=== PATIENT | female | born 1950 | race Caucasian/White ===

== ENCOUNTER 2020-09-18 07:18 | Day surgery (SDC) | payer OTHER ==
[~2020-09-18] VITALS: Ht 162.6 cm; Wt 59.0 kg
[~2020-09-18 07:18] MED LIST: FLONASE SENSIM5.9 ML NS; LIPITOR40 MG PO; NEXIUM40 MG PO; OMEPRAZOLE20 MG PO; VENTOLIN HFA18 GM INH; [UNRECOGNIZED DRUG - OTHER] IM
--- NOTE | 2020-09-18 08:38 | NUR ---
09/18/20 0838 Ana Perera 0831- PT ARRIVES TO PACU AWAKE. PT REPORTS NO PAIN OR NAUSEA. PT DROWSY AND FALLS TO SLEEP WHEN NOT BEING TALKED TO. RESP EVEN AND UNLABORED. OXYGEN SAT HIGH 90'S TO 100% ON 3L VIA NC.
--- NOTE | 2020-09-23 09:43 | PATH ---
[facility] [address] [place], [place] [address] Signed SPECIMEN(S): A DUODENAL BIOPSY SPECIMEN(S): B ANTRUM/ANTRAL BIOPSY SPECIMEN(S): C DISTAL ESOPHAGEAL BIOPSY SPECIMEN(S): D MID ESOPHAGEAL BIOPSY SPECIMEN SOURCE: A. DUODENAL BIOPSY B. ANTRUM/ANTRAL BIOPSY C. DISTAL ESOPHAGEAL BIOPSY D. MID ESOPHAGEAL BIOPSY CLINICAL HISTORY: GERD, esophagitis. Postop: Hiatal hernia, mild gastritis, normal esophagus. MICROSCOPIC DESCRIPTION: Histologic sections of all submitted blocks are examined by light microscopy. These findings, together with the gross examination, support the pathologic diagnosis. FINAL PATHOLOGIC DIAGNOSIS: A. Duodenum, biopsy: - No significant histopathology. B. Stomach, antrum, biopsy: - Chemical gastropathy. C. Distal esophagus, biopsy: - Portions of unremarkable gastric mucosa. - Portions of unremarkable squamous mucosa. - No evidence of Odonnell's esophagus. D. Mid esophagus, biopsy: - Portions of unremarkable squamous mucosa. COMMENT: Regarding specimen A, the sections from the duodenal biopsy show portions of duodenal mucosa with long finger-like villi. There is no villous atrophy, crypt hyperplasia or intraepithelial lymphocytosis, making a diagnosis of celiac disease unlikely. There is no evidence of peptic duodenitis, microorganisms, abnormal infiltrates or neoplasia. Regarding specimen B, these sections reveal features of mild chemical gastropathy. The gastric pits appear slightly irregular and there is mild mucosal congestion. There is no evidence of acute or chronic inflammation. Chemical gastropathies are most commonly seen in PATIENT NAME: MACKENZIE KAHN PATHOLOGY DATE OF : 54 REPORT #: [id number] PHYSICIAN: ANDREAS PETERSON PCP: PARAG MONSALVE MD REPORT IS CONFIDENTIAL AND NOT TO BE RELEASED WITHOUT AUTHORIZATION [facility] [address] [place], [place] [address] Signed individuals with alkaline reflux, exposure to drugs as well as other chemicals. Regarding specimen C, the sections show fragments of unremarkable gastric and squamous mucosa. There is no evidence of acute or chronic inflammation. The specialized columnar epithelium of Odonnell's esophagus is not identified. Regarding specimen D, the biopsy shows normal appearing squamous epithelium. There is no evidence of acute or chronic inflammation. TWK:emh:C2NR GROSS DESCRIPTION: Four specimens are received in four containers, labeled "Mackenzie Kahn." A. The specimen, labeled "Mackenzie Kahn, #1," and designated on the requisition "duodenal biopsy," is received in formalin and consists of two moody soft tissue fragment(s) that measure 0.2 and 0.2 cm in greatest dimension. The specimen is entirely submitted in cassette (A1). B. The specimen, labeled "Mackenzie Kahn, #2," and designated on the requisition "antrum/pylorus biopsy," is received in formalin and consists of two moody soft tissue fragment(s) that measure 0.2 and 0.2 cm in greatest dimension. The specimen is entirely submitted in cassette (B1). C. The specimen, labeled "Mackenzie Kahn, #3," and designated on the requisition "distal esophagus biopsy," is received in formalin and consists of four white-moody soft tissue fragment(s) that measure 0.2-0.4 cm in greatest dimension. The specimen is entirely submitted in cassette (C1). D. The specimen, labeled "Mackenzie Kahn, #4," and designated on the requisition "mid esophagus biopsy," is received in formalin and consists of two white-moody soft tissue fragment(s) that measure 0.4 and 0.6 cm in greatest dimension. The specimen is entirely submitted in cassette (D1). FB (under the direct supervision of a pathologist) The Gross Description was prepared using a voice recognition system. The report was reviewed for accuracy; however, sound-alike word errors, addition and/or deletions may occur. If there is any question about this report, please contact Client Services. PERFORMING LABORATORY: The technical component was performed by [facility], [address] [place] [id number] (Plant Safety Leader: Debi Godinez MD; CLIA# [id number]). Professional interpretation was performed by [facility] [address] [place] [address] PATIENT NAME: MACKENZIE KAHN PATHOLOGY DATE OF : 54 REPORT #: [id number] PHYSICIAN: ANDREAS PETERSON PCP: PARAG MONSALVE MD REPORT IS CONFIDENTIAL AND NOT TO BE RELEASED WITHOUT AUTHORIZATION [facility] [address] [place] [id number] Signed [facility] [address] (Plant Safety Leader: Debi Godinez MD; CLIA# [id number]). Diagnostician: Catarino Jones MD Pathologist Electronically Signed 09/23/2020 Copies: ~ PATIENT NAME: FEMIMACKENZIE MAY PATHOLOGY DATE OF : 54 REPORT #: [id number] PHYSICIAN: ANDREAS PETERSON PCP: PARAG MONSALVE MD REPORT IS CONFIDENTIAL AND NOT TO BE RELEASED WITHOUT AUTHORIZATION
--- NOTE | 2020-09-23 13:31 | OR ---
[facility] [address] [place], [place] [address] Signed DATE OF OPERATION: 09/18/2020 SURGEON: Darcy Smith MD PREOPERATIVE DIAGNOSES: 1. Sensation of "thickness" in throat. 2. Longstanding reflux disease, possible history of Odonnell's esophagus. POSTOPERATIVE DIAGNOSES: 1. No evidence of Odonnell's esophagitis; small hiatal hernia. 2. Mild gastritis without ulceration. 3. Normal-appearing vocal cords, but thickening of soft tissue arytenoid folds. PROCEDURE: Esophagogastroduodenoscopy with biopsy. ANESTHESIA: Intravenous sedation, fentanyl 100 mcg and Versed 3 mg. INDICATION: This 70-year-old white woman is a patient of Dr. Beard and was referred by Dr. Padilla following nasopharyngoscopy, which showed suspicion of possible reflux disease. The patient has seen Dr. Rigo Bowers in [place] since 2018 having undergone upper endoscopy and repeat upper endoscopy in 2019. It is unclear, but she may have had Odonnell's esophagus diagnosed in the past. Pharyngoscopy by Dr. Padilla was said to be normal. She has had some mild cervical dysphagia and a feeling of "a low-grade thing" in her throat where she felt thickening and aggregation of secretions and a sensation of fullness. She has had no hematemesis. She has had no weight loss and has no family history of esophageal cancer. She takes Nexium on a daily basis. She has no distal dysphagia. She is admitted at this time to undergo upper endoscopy upon referral from Dr. Padilla to better characterize her problem. FINDINGS: The vocal cords proper appeared normal but the arytenoid processes and soft tissue seemed somewhat congested and full. Esophagus itself was normal without signs of Odonnell's esophagus and a small hiatal hernia was noted. The stomach had minimal inflammation diffusely, but no sign of ulceration. The pylorus was normal as was the duodenum. CLOtest was negative 20 minutes post procedure. Electronically Signed By: DARCY SMITH MD 09/23/20 1331 PATIENT NAME: MACKENZIE KAHN OPERATIVE REPORT DATE OF : 54 REPORT #: [id number] PHYSICIAN: DARCY SMITH MD PCP: PARAG BEARD MD REPORT IS CONFIDENTIAL AND NOT TO BE RELEASED WITHOUT AUTHORIZATION [facility] [address] [place], [place] [address] Signed DESCRIPTION OF PROCEDURE: The patient was brought to the endoscopy suite and given topical lidocaine hypopharyngeal anesthesia and placed in lateral decubitus position and given intravenous sedation to the point of slurred speech and nystagmus with full cardiopulmonary monitoring. A bite block was placed. An Olympus video upper endoscope was passed in the hypopharynx. Inspection of the hypopharynx showed no specific mass. The arytenoid folds were closed much of the time and only episodically opening to allow for visualization of the vocal cords proper. Once visualized, they appeared entirely normal, but it did appear to be edema of the arytenoid folds. The scope was advanced to the esophagus without problem. The esophagus throughout its length was normal including no evidence of Odonnell's epithelium. The scope was passed to the stomach, which was insufflated with air. Rugal folds were normal. There was some mild antral gastritis, but no sign of ulceration or erosion. Pylorus was normal and nondeformed. The scope was passed through into the duodenum, which was normal. Biopsies were obtained of the duodenum to assess for celiac disease. The scope was withdrawn carefully through the bulb and channel, which was normal. Scope was withdrawn to the antrum allowing for biopsy for both JUAN and pathologic testing. Retroflexed view was undertaken showing a small hiatal hernia. The scope was withdrawn to the distal esophagus, although there was no Z-line, only a circumferential straight line. There was no evidence of Odonnell's epithelium. No sign of active inflammation, no stricture, neoplasm, or varices. Biopsies were obtained. The scope was withdrawn in the midesophagus and biopsied as well. Careful withdrawal showed no other abnormalities. Reinspection of the vocal cord area undertaken, showed no sign of abnormality in the true vocal cords. The scope was removed. The patient was taken to the recovery room in good condition. CONCLUDING DIAGNOSIS: 1. Small hiatal hernia without esophagitis and certainly no evidence of Odonnell's epithelium. 2. Edematous changes of arytenoid folds, nonspecific. PLAN: She will return to the ongoing care of Dr. Beard and Dr. Padilla. Would have her continue with the Nexium as is. MD CARLOS Carbajal/MODL Electronically Signed By: DARCY SMITH MD 09/23/20 1331 PATIENT NAME: MACKENZIE KAHN OPERATIVE REPORT DATE OF : 54 REPORT #: [id number] PHYSICIAN: DARCY SMITH MD PCP: PARAG BEARD MD REPORT IS CONFIDENTIAL AND NOT TO BE RELEASED WITHOUT AUTHORIZATION [place] [id number] Signed /[id number] cc: MD Parag Villafana MD Copies: KARAN PADILLA MD, JONATHAN MD ~ Electronically Signed By: DARCY SMITH MD 09/23/20 1331 PATIENT NAME: MACKENZIE KAHN GIBRAN OPERATIVE REPORT DATE OF : 54 REPORT #: [id number] PHYSICIAN: DARCY SMITH MD PCP: PARAG BEARD MD REPORT IS CONFIDENTIAL AND NOT TO BE RELEASED WITHOUT AUTHORIZATION
== END 2020-09-18 09:10 | disposition home or self-care (01) ==
LOC: DS 07:18 → OPS 07:18 → DS 08:00 → OPS 09:10
PROVIDERS: ATTEND Surgery
PROC: 0DB78ZX Excision of Stomach, Pylorus, Via Natural or Artificial Opening Endoscopic, Diagnostic (ICD-10-PCS; 2020-09-18)
PROC: 0DB28ZX Excision of Middle Esophagus, Via Natural or Artificial Opening Endoscopic, Diagnostic (ICD-10-PCS; 2020-09-18)
PROC: 0DB38ZX Excision of Lower Esophagus, Via Natural or Artificial Opening Endoscopic, Diagnostic (ICD-10-PCS; 2020-09-18)
PROC: 0DB98ZX Excision of Duodenum, Via Natural or Artificial Opening Endoscopic, Diagnostic (ICD-10-PCS; principal; 2020-09-18 08:00)
DX: J38.3 Other diseases of vocal cords (principal); K31.9 Disease of stomach and duodenum, unspecified; K44.9 Diaphragmatic hernia without obstruction or gangrene; K29.70 Gastritis, unspecified, without bleeding; R63.4 Abnormal weight loss
CPT/HCPCS: G0500; J1100; J2250; J2405; J3010; J7121

== ENCOUNTER 2020-12-26 11:58 | Emergency (ER) | payer OTHER ==
[~2020-12-26] VITALS: Ht 162.6 cm; Wt 59.0 kg
[2020-12-26] MEDS ORDERED: PERCOCET 5-3251 EACH PO (13:08)
[2020-12-30] MEDS ORDERED: LO-DOSE ASPIRIN81 M1 (15:50)
[2020-12-30] MEDS ORDERED: CALCIUM + VITA1 EACH (15:51)
== END 2020-12-26 13:45 | disposition home or self-care (01) ==
LOC: ED 11:58
DX: S82.232A Displaced oblique fracture of shaft of left tibia, initial encounter for closed fracture (principal); W01.0XXA Fall on same level from slipping, tripping and stumbling without subsequent striking against object, initial encounter
CPT/HCPCS: 29505; 73590; 99283-25; J1170; J2405

== ENCOUNTER 2021-01-04 06:35 | Day surgery (SDC) | payer OTHER ==
[~2021-01-04] VITALS: Ht 160 cm; Wt 59.1 kg
[~2021-01-04 06:35] MED LIST changes: +CALCIUM + VITA1 EACH; +LO-DOSE ASPIRIN81 M1; +PERCOCET 5-3251 EACH PO
[2021-01-04] MEDS ORDERED: OXYCODONE HCL5 MG PO (07:26)
--- NOTE | 2021-01-04 11:06 | NUR ---
01/04/21 1106 Kenia Moon 1058 PT TO PACU SLEEPING ORAL AIRWAY IN PLACE O2 AT 6L VIA MASK.
[2021-01-04] MEDS ORDERED: ASPIRIN325 MG PO (11:10)
[2021-01-04] MEDS ORDERED: SENNA LAX8.6 MG PO (11:10)
--- NOTE | 2021-01-04 11:58 | NUR ---
PT ARRIVES TO DS RM 4 FROM PACU AWAKE. PT DENIES ANY PAIN IN LLE AND STATES "SOME NAUSEA" WHEN ASKED. PT PROVIDED ALCOHOL SWAB TO INHALE FOR N/V. PT ABLE TO VOID QS IN BEDPAN. SCD IN PLACE ON RLE, PUMPING. PT PROVIDED ICED WATER, CALL LIGHT WITHIN REACH.
--- NOTE | 2021-01-04 13:08 | NUR ---
PT RESTING IN BED AWAKE, DENIES ANY PAIN IN LLE. PT STATES NAUSEA HAS DISSIPATED AND PROVIDED CRACKERS. PT SPOUSE IN RM AT THIS TIME, EDUCATION PROVIDED TO BOTH PT AND SPOUSE. DC CRITERIA EXPLAINED AT THIS TIME, ENCOURAGED TO USE CALL LIGHT WITH ANY NEEDS.
--- NOTE | 2021-01-04 13:09 | OR ---
[facility] [address] [place], [place] [address] Signed DATE OF OPERATION: 01/04/2021 SURGEON: Pati Moon MD PREOPERATIVE DIAGNOSIS: Left distal 3rd tibia fracture. POSTOPERATIVE DIAGNOSIS: Left distal 3rd tibia fracture. PROCEDURE PERFORMED: Closed reduction, intramedullary rodding, left tibia. ELEPHANT TAMER: Neli Valente PA-C. Neli was present and critical for all portions of procedure. ANESTHESIA: General. IMPLANTS: Synthes IM kiera, 9 x 330 with 3 interlocking screws. BLOOD LOSS: 100 mL. BRIEF HISTORY: Mackenzie is a 70-year-old female who suffered a ground level fall fracturing her tibia and her fibula proximally. Risks and benefits of operative treatment were discussed with her and she elected to proceed. DESCRIPTION OF PROCEDURE: Once consent was obtained, she was taken to the operating room. After adequate anesthesia, she was placed on operating room table, all downside pressure points were well padded. The right leg was prepped and draped in a standard sterile fashion. The fracture was fairly easily reduced under image intensifier guidance. We then approached proximally through a 1.5 inch incision along the medial aspect of the patellar tendon. This was carried through skin and subcutaneous tissue. The curved awl was then used into the proximal tibia and this was followed by the ball-tipped guide kiera, which was advanced from the proximal tibia down to the fracture. The fracture was held reduced Electronically Signed By: PATI MOON MD 01/04/21 1309 PATIENT NAME: MACKENZIE KAHN OPERATIVE REPORT DATE OF : 54 REPORT #: [id number] PHYSICIAN: PATI MOON MD PCP: PARAG MNOSALVE MD REPORT IS CONFIDENTIAL AND NOT TO BE RELEASED WITHOUT AUTHORIZATION [facility] [address] [place] [id number] Signed and a ball-tipped guidewire was advanced into a center-center position distally. This was then reamed up to a 9.5, which was the bigger kiera as I figured we can get in her. We then measured the kiera and selected the 330. The kiera was then impacted to the fracture site and again, it was reduced and the kiera was advanced across the fracture again into a center-center position distally. The guide kiera was removed. Two distal interlocking screws were placed using perfect circles technique distally. One proximal interlocking screw was placed due to stability of the fracture. The wounds were copiously irrigated with antibiotic solution, closed with #1 Vicryl for the arthrotomy and 2-0 Monocryl for the subcutaneous tissue, and roshni for all skin incisions. The wounds were dressed with Allevyn dressing and an Dennis wrap. She tolerated the procedure well. All sponge, needle, and instrument counts were correct. Pati Moon MD BA/JOI /[id number] Copies: ~ Electronically Signed By: PATI MOON MD 01/04/21 1309 PATIENT NAME: MACKENZIE KAHN GIBRAN OPERATIVE REPORT DATE OF : 54 REPORT #: [id number] PHYSICIAN: PATI MOON MD PCP: PARAG MONSALVE MD REPORT IS CONFIDENTIAL AND NOT TO BE RELEASED WITHOUT AUTHORIZATION
--- NOTE | 2021-01-04 15:34 | NUR ---
[id number]: PT UP TO BATHROOM WITH RN ASSIST AND USE OF FWW. STEADY GAIT, DENIES DIZZINESS OR NAUSEA WITH MOVEMENT. PT ABLE TO VOID APPROX 450 MLS PALE YELLOW URINE WITH NO PROBLEMS. PT BACK TO RM 4 TO GET DRESSED WITH SPOUSE ASSIST. DC INSTRUCTIONS PRESENTED TO BOTH SPOUSE AND PT, ALL QUESTIONS ADDRESSED. PT AWARE OF MEDICATIONS E-SCRIPTED TO PREFERRED PHARMACY. PT TRANSFERS SELF WITH USE OF FWW TO AND IS WHEELED OUT BY THIS RN TO SPOUSE WAITING IN PERSONAL VEHICLE AT MAIN HOSPITAL ENTRANCE, DC HOME.
--- NOTE | 2021-01-04 19:15 | EKG ---
[facility] [address] [facility] [place], [place] [address] Signed Normal sinus rhythm Normal ECG No previous ECGs available Confirmed by CÉSAR GUERRA MD ([id number]) on 01/04/2021 7:15:36 PM Electronically Signed By: CÉSAR GUERRA MD 01/04/21 1915 PATIENT NAME: MACKENZIE KAHN Electrocardiogram DATE OF : 54 PHYSICIAN: CÉSAR GUERRA MD REPORT #: [id number] REPORT IS CONFIDENTIAL AND NOT TO BE RELEASED WITHOUT AUTHORIZATION
== END 2021-01-04 13:55 | disposition home or self-care (01) ==
LOC: DS 06:35
PROVIDERS: ATTEND Specialist
PROC: 0QSH04Z Reposition Left Tibia with Internal Fixation Device, Open Approach (ICD-10-PCS; 2021-01-04)
PROC: 0QSK04Z Reposition Left Fibula with Internal Fixation Device, Open Approach (ICD-10-PCS; principal; 2021-01-04 08:45)
DX: S82.232A Displaced oblique fracture of shaft of left tibia, initial encounter for closed fracture (principal); S82.832A Other fracture of upper and lower end of left fibula, initial encounter for closed fracture; W01.0XXA Fall on same level from slipping, tripping and stumbling without subsequent striking against object, initial encounter
CPT/HCPCS: 73590; 80053; 85025; 93005; 93010; J0690; J1100; J1885; J2001; J2250; J2405; J2704; J2795; J3010; J7121